=== PATIENT | female | born 1995 | race Caucasian/White ===

== ENCOUNTER 2016-12-29 11:50 | Emergency (ER) | payer BC ==
[2016-12-29] MEDS ORDERED: METOCLOPRAMIDE HCL 10 MG/2 ML VIAL IVP ONE (12:08)
[2016-12-29] MEDS ORDERED: KETOROLAC 30 MG/ML VIAL IVP ONE (12:08)
[2016-12-29] MEDS ORDERED: 0.9 % SODIUM CHLORIDE 1,000 ML BAG IV ONE (12:08)
[2016-12-29] MEDS ORDERED: DEXAMETHASONE 4 MG/ML 1ML VIAL IVP ONE (12:08)
[2016-12-29] MEDS ORDERED: DIPHENHYDRAMINE HCL IV 50 MG/ML VIAL IVP ONE (12:08)
--- NOTE | 2016-12-29 12:08 | Emergency Department Record ---
History of Present Illness - General Stated Complaint: MIGRAINE Time Seen by Provider: 12/29/16 11:51 Source: Patient Mode of Arrival: Ambulatory Limitations: No limitations - History of Present Illness Initial Comments: 21 yo female presents with a headache. She reports she has had migraines since the age of 15. Her migraines occur about once a week to every tow weeks. since the beginning of the summer she has had increase in frequency of her migraines. She often has a preceding aura. No speech changes, no weakness, facial expression changes, hearing changes, weakness or coordination changes. She does have sensitivity to light and noises. She was on preventative medications at one point in time but has not taken them for a few years. No trauma or fever. She is under stress.PCP Pily Lew MD Complaint: Headache, "Migraine" -: Month(s) (Increased migraine frequency since the begining of summer) Onset Description: Gradual Location: Frontal Severity: Severe Quality: Aching Consistency: Intermittent Improves With: Nothing Worsens With: Light, Noise Associated Symptoms: Nausea, Photophobia, Vomiting Treatments Prior to Arrival: Migraine medication - Related Data Home Medications Medication Instructions Recorded Confirmed Last Taken No Home Med [NO HOME MEDS] 12/29/16 12/29/16 Unknown Allergies Allergy/AdvReac Type Severity Reaction Status Date / Time cefixime [From Suprax] Allergy DIFFICULTY Unverified 09/08/16 18:50 BREATHING sulfamethoxazole Allergy DIFFICULTY Unverified 09/08/16 18:50 [From Bactrim] BREATHING trimethoprim [From Bactrim] Allergy DIFFICULTY Unverified 09/08/16 18:50 BREATHING Review of Systems Constitutional: Denies: Chills, Fever, Night sweats, Weakness Eyes: Reports: Photophobia. Denies: Eye discharge, Eye pain, Vision change ENT: Denies: Congestion, Throat pain Respiratory: Denies: Cough, Dyspnea, Hemoptysis, Stridor, Wheezes Cardiovascular: Denies: Chest pain, Palpitations, Syncope Endocrine: Denies: Fatigue, Polydipsia, Polyuria Gastrointestinal: Reports: Nausea, Vomiting. Denies: Abdominal pain, Diarrhea, Hematochezia Genitourinary: Denies: Dyspareunia, Dysuria, Urgency Musculoskeletal: Denies: Arthralgia, Back pain, Joint swelling, Myalgia, Neck pain Skin: Denies: Bruising, Change in color, Rash Neurological: Reports: Headache. Denies: Abnormal gait, Confusion, Numbness, Paresthesias, Seizure, Tingling, Tremors, Vertigo, Weakness Psychiatric: Denies: Anxiety Hematological/Lymphatic: Denies: Anemia, Blood Clots, Easy bleeding, Easy bruising, Swollen glands Physical Exam - General General Appearance: Alert, Oriented x3, Cooperative, No acute distress Limitations: No limitations - Head Head exam: Atraumatic, Normocephalic, Normal inspection - Eye Eye exam: Normal appearance, PERRL, EOMI. negative: Conjunctival injection, Nystagmus, Periorbital swelling, Scleral icterus Pupils: Normal accommodation. negative: Irregular, Unequal - ENT ENT exam: Normal exam, Mucous membranes moist Ear exam: Normal external inspection Nasal Exam: Normal inspection Mouth exam: Normal external inspection Throat exam: Normal inspection. negative: Tonsillar erythema, Tonsillomegaly, Tonsillar exudate, R peritonsillar mass, L peritonsillar mass - Neck Neck exam: Normal inspection, Full ROM. negative: Lymphadenopathy, Tenderness - Respiratory Respiratory exam: Normal lung sounds bilaterally. negative: Respiratory distress - Cardiovascular Cardiovascular Exam: Regular rate, Normal rhythm, Normal heart sounds - GI/Abdominal GI/Abdominal exam: Soft. negative: Tenderness - Rectal Rectal exam: Deferred - exam: Deferred - Extremities Extremities exam: Normal inspection, Full ROM. negative: Pedal edema - Back Back exam: Reports: Normal inspection, Full ROM. Denies: Muscle spasm, Rash noted, Tenderness - Neurological Neurological exam: Alert, CN II-XII intact, Normal gait, Oriented X3, Reflexes normal, Other (Normal finger to nose, normal Rhomber, Normal ELEAZAR, ). negative: Abnormal gait, Altered, Motor sensory deficit - Psychiatric Psychiatric exam: Normal affect, Normal mood. negative: Agitated, Anxious - Skin Skin exam: Dry, Intact, Normal color, Warm Course - Reevaluation(s) Reevaluation #1: The patient was seen on arrival with the nurse. 12/29/16 11:53 Records from [facility] requested 12/29/16 12:11 CBC and CMP were reviewed and are in the normal range. 12/29/16 13:13 UA and HCG are negative HCT is pending 12/29/16 14:20 HCT negative for acute process The patient has follow up with PCP at 4:30pm We discussed follow up and possible placing her on daily preventative for migraines BP much improved at DC Her pain is well controlled at DC 12/29/16 15:04 Medical Decision Making - Lab Data Result diagrams: 12/29/16 12:35 12/29/16 12:35 Disposition Disposition: Discharge Clinical Impression: Migraine Qualifiers: Migraine type: unspecified Status migrainosus presence: without status migrainosus Intractability: not intractable Qualified Code(s): G43.909 - Migraine, unspecified, not intractable, without status migrainosus Disposition: Home, Self-Care Condition: (1) Good Instructions: Migraine Headache (ED) Additional Instructions: Follow up at 4:30 with your family doctor as scheduled Review you rlabs and head CT scan You scan was normal except mild right maxillary sinus disease Forms: Patient Portal Access Time of Disposition: 15:05 Quality - Quality Measures Quality Measures: Headache - Headache: Neuroimaging Quality Measure: Measure #419: Overuse of Neuroimaging Neurological Exam: Patient had a normal neurological exam. [G9535] Headache: Use of Neuroimaging: CTA, CT, MRA or MRI Ordered w/Medical Reason [ G9536] Medical Reason for Exam: Change in Type of Headache - Blood Pressure Screening Does Patient Have Any of the Following: No Blood Pressure Classification: Pre-Hypertensive BP Reading Systolic Measurement: 130 Diastolic Measurement: 76 Screening for High Blood Pressure: < Pre-Hypertensive BP, F/U Documented > [ G8950] Pre-Hypertensive Follow-up Interventions: Referral to alternative/primary care provider.
[2016-12-29 12:45] LABS: HEMATOCRIT 35.7 % (35.0-47.0); HEMOGLOBIN 11.6 gm/dl (11.6-16.0); MEAN CELL VOLUME 85.4 fl (81-97); MEAN CORPUSCULAR HEMOGLOBIN 27.8 pg (27-33); MEAN CORPUSCULAR HGB CONC 32.5 g/dl (32-36); MEAN PLATELET VOLUME 8.5 fl (7.4-10.4); PLATELET COUNT 394 K/uL (130-400); RED BLOOD COUNT 4.18 M/uL (3.80-5.40); RED CELL DISTRIBUTION WIDTH 13.3 % (11.5-14.5)
[2016-12-29 12:56] LABS: PLATELET ESTIMATE NORMAL (NORMAL)
[2016-12-29 12:57] LABS: BLOOD UREA NITROGEN 30.8 mg/dL (12.6-42.6); CREATININE 0.5 mg/dL (0.5-0.9); EST GLOMERULAR FILTRATION RATE > 60 mL/min; GLUCOSE,RANDOM 96 mg/dL (74-109)
[2016-12-29] MEDS ORDERED: MAGNESIUM SULFATE 16 MEQ in 0.9 % SODIUM CHLORIDE 100ML 100 ML IV ONE (13:13)
[2016-12-29 13:37] LABS: URINE APPEARANCE CLEAR; URINE BILIRUBIN NEGATIVE (NEGATIVE); URINE BLOOD NEGATIVE (NEGATIVE); URINE COLOR YELLOW; URINE GLUCOSE (UA) NEGATIVE (NEGATIVE); URINE KETONE NEGATIVE (NEGATIVE); URINE LEUKOCYTE ESTERASE NEGATIVE (NEGATIVE); URINE NITRITE NEGATIVE (NEGATIVE); URINE PROTEIN NEGATIVE (NEGATIVE); URINE UROBILINOGEN 0.2 E.U./dL (0.20 - 1.00)
[2016-12-29 13:41] LABS: HCG,QUALITATIVE URINE NEGATIVE (NEGATIVE)
--- NOTE | 2016-12-30 07:25 | CT SCAN REPORT ---
EXAM: CT OF THE BRAIN WITHOUT CONTRAST HISTORY: INJURY. TECHNIQUE: Sequential axial images were obtained from the foramen magnum to the vertex without contrast administration. FINDINGS: The brain volume is normal. No large territorial infarct, hemorrhage , mass effect, or midline shift. No extraaxial fluid collection. There is right maxillary sinus disease. No depressed skull fracture. IMPRESSION: 1. NO ACUTE INTRACRANIAL ABNORMALITY IS APPRECIATED. 2. RIGHT MAXILLARY SINUS DISEASE. JOB NUMBER: [id number] MTDD
== END 2016-12-29 15:15 | disposition home or self-care (01) ==
LOC: ER 11:50
DX: G43.909 Migraine, unspecified, not intractable, without status migrainosus (principal); R11.2 Nausea with vomiting, unspecified; H53.149 Visual discomfort, unspecified
CPT/HCPCS: 99284 ×2; 96365; 96375; 96361; 80048; 81003; 81025; 85027; 70450; J1885; J1200; J2765; J7030

== ENCOUNTER 2018-02-24 10:46 | Emergency (ER) | payer BC ==
[2018-02-24] MEDS ORDERED: 0.9 % SODIUM CHLORIDE 1,000 ML BAG IV ONE (10:57)
--- NOTE | 2018-02-24 11:02 | Emergency Department Record ---
History of Present Illness - General Chief complaint: complication Stated complaint: STOMACH PAIN, 8 WEEKS PREG Time Seen by Provider: 02/24/18 10:56 Source: Patient - History of Present Illness Initial comments: The patient is [id number] 12-30-17, 8 weeks . She awakened at 3 a.m. this morning with a "severe cramp" which is waxing and waning between 7/10 to 0/10. She denies radiation to back, fevers, chills, dysuria, vaginal bleeding. She has nausea which she states is due to her . She has been seen in [place] "intake only" for her , but has not yet seen the OB physician. MD Complaint: Abdominal pain - Related Data Previous Rx's Medication Instructions Recorded Nitrofurantoin Monohyd/M-Cryst 100 mg PO BID #20 capsule 02/24/18 [Macrobid 100 mg Capsule] Allergies Allergy/AdvReac Type Severity Reaction Status Date / Time cefixime [From Suprax] Allergy DIFFICULTY Verified 02/24/18 11:01 BREATHING sulfamethoxazole Allergy DIFFICULTY Verified 02/24/18 11:01 [From Bactrim] BREATHING trimethoprim [From Bactrim] Allergy DIFFICULTY Verified 02/24/18 11:01 BREATHING Review of Systems Reviewed: No additional complaints except as noted below Constitutional: Reports: As per HPI. Denies: Chills, Fever, Malaise, Night sweats, Weakness, Weight change Eyes: Reports: As per HPI. Denies: Eye discharge, Eye pain, Photophobia, Vision change ENT: Reports: As per HPI. Denies: Congestion, Dental pain, Ear pain, Epistaxis , Hearing loss, Throat pain Respiratory: Reports: As per HPI. Denies: Cough, Dyspnea, Hemoptysis, Stridor, Wheezes Cardiovascular: Reports: As per HPI. Denies: Arrhythmia, Chest pain, Dyspnea on exertion, Edema, Murmurs, Orthopnea, Palpitations, Paroxysmal nocturnal dyspnea, Rheumatic Fever, Syncope Endocrine: Reports: As per HPI. Denies: Fatigue, Heat or cold intolerance, Polydipsia, Polyuria Gastrointestinal: Reports: As per HPI. Denies: Abdominal pain, Constipation, Diarrhea, Hematemesis, Hematochezia, Melena, Nausea, Vomiting Genitourinary: Reports: As per HPI. Denies: Abnormal menses, Discharge, Dyspareunia, Dysuria, Frequency, Hematuria, Incontinence, Retention, Urgency Musculoskeletal: Reports: As per HPI. Denies: Arthralgia, Back pain, Gout, Joint swelling, Myalgia, Neck pain Skin: Reports: As per HPI. Denies: Bruising, Change in color, Change in hair/ nails, Lesions, Pruritus, Rash Neurological: Reports: As per HPI. Denies: Abnormal gait, Confusion, Headache, Numbness, Paresthesias, Seizure, Tingling, Tremors, Vertigo, Weakness Psychiatric: Reports: As per HPI. Denies: Anxiety, Auditory hallucinations, Depression, Homicidal thoughts, Suicidal thoughts, Visual hallucinations Hematological/Lymphatic: Reports: As per HPI. Denies: Anemia, Blood Clots, Easy bleeding, Easy bruising, Swollen glands Past Medical History - SOCIAL HISTORY Smoking Status: Never smoker Drug Use: None - RESPIRATORY Hx Respiratory Disorders: No - CARDIOVASCULAR Hx Cardio Disorders: No - NEURO Hx Neuro Disorders: Yes Hx Headaches: Yes - GI Hx GI Disorders: No - Hx Genitourinary Disorders: No - ENDOCRINE Hx Endocrine Disorders: No - MUSCULOSKELETAL Hx Musculoskeletal Disorders: No - PSYCH Hx Psych Problems: No - HEMATOLOGY/ONCOLOGY Hx Hematology/Oncology Disorders: No Physical Exam - General General Appearance: Alert, Oriented x3, Cooperative, Mild distress - Head Head exam: Normal inspection - Eye Eye exam: Normal appearance, PERRL Pupils: Normal accommodation - ENT ENT exam: Normal exam, Mucous membranes moist, Normal external ear exam, Normal orophraynx, TM's normal bilaterally Ear exam: Normal external inspection. negative: External canal tenderness Nasal Exam: Normal inspection. negative: Discharge, Sinus tenderness Mouth exam: Normal external inspection, Tongue normal Teeth exam: Normal inspection. negative: Dental caries Throat exam: Normal inspection. negative: Tonsillar erythema, Tonsillar exudate - Neck Neck exam: Normal inspection, Full ROM. negative: Tenderness - Respiratory Respiratory exam: Normal lung sounds bilaterally. negative: Respiratory distress - Cardiovascular Cardiovascular Exam: Regular rate, Normal rhythm, Normal heart sounds - GI/Abdominal GI/Abdominal exam: Soft, Normal bowel sounds, Tenderness (mild discomfort on palpation of lower abdomen bilaterally). negative: Distended, Guarding, Rebound , Rigid - Rectal Rectal exam: Deferred - exam: Deferred - Extremities Extremities exam: Normal inspection, Full ROM, Normal capillary refill. negative: Calf tenderness, Pedal edema, Tenderness - Back Back exam: Reports: Normal inspection, Full ROM. Denies: CVA tenderness (R), CVA tenderness (L), Muscle spasm, Rash noted, Tenderness - Neurological Neurological exam: Alert, CN II-XII intact, Normal gait, Oriented X3, Reflexes normal. negative: Motor sensory deficit - Psychiatric Psychiatric exam: Normal affect, Normal mood - Skin Skin exam: Dry, Intact, Normal color, Warm Course - Reevaluation(s) Reevaluation #1: Awaiting ultrasound results. Patient remains nauseated but declines zofran. IV infusion of NS in progress. 02/24/18 13:31 Reevaluation #2: Results discussed with patient. She is feeling somewhat better after fluids. Results discussed. Importance of completing all her antibiotics emphasized. Patient agrees, understands and will follow with her OB. 02/24/18 14:09 02/24/18 14:14 Medical Decision Making - Management Options MDM Management: No Additional Work-up Planned - Data Complexity MDM Data: Labs Ordered and/or Reviewed (UA:10-15 epi; 3-5WBC, 3-6 RBC, 2+bact; sm LE.), X-Ray Ordered and/or Reviewed (US Pelvis: IUP 5 wk 1 day; FHT's 130' s. Per radiologist. ) - Lab Data Result diagrams: 02/24/18 11:20 02/24/18 11:20 Disposition Disposition: Discharge Clinical Impression: First trimester UTI (urinary tract infection) Qualifiers: Urinary tract infection type: acute cystitis Hematuria presence: with hematuria Qualified Code(s): N30.01 - Acute cystitis with hematuria Disposition: Home, Self-Care Condition: (1) Good Instructions: (ED), Urinary Tract Infection in (ED) Additional Instructions: Macrobid as directed until gone. Increase fluid intake. Follow up with OB as previously arranged. Prescriptions: Nitrofurantoin Monohyd/M-Cryst [Macrobid 100 mg Capsule] 100 mg PO BID #20 capsule Forms: Patient Portal Access Quality - Quality Measures Quality Measures: N/A - Blood Pressure Screening Does Patient Have Any of the Following: No Blood Pressure Classification: Pre-Hypertensive BP Reading Systolic Measurement: 141 Diastolic Measurement: 85 Screening for High Blood Pressure: < Pre-Hypertensive BP, F/U Documented > [ G8950] Pre-Hypertensive Follow-up Interventions: Follow-up with rescreen every year.
[2018-02-24 11:49] LABS: URINE APPEARANCE CLEAR; URINE BILIRUBIN NEGATIVE (NEGATIVE); URINE BLOOD NEGATIVE (NEGATIVE); URINE COLOR YELLOW; URINE GLUCOSE (UA) NEGATIVE (NEGATIVE); URINE KETONE NEGATIVE (NEGATIVE); URINE LEUKOCYTE ESTERASE SMALL (NEGATIVE); URINE NITRITE NEGATIVE (NEGATIVE); URINE PROTEIN NEGATIVE (NEGATIVE); URINE UROBILINOGEN 0.2 E.U./dL (0.20 - 1.00)
[2018-02-24 11:50] LABS: BASO % 0.2 % (0-6); EOS % 2.3 % (0-6); GRAN % 59.1 % (47-80); HEMATOCRIT 39.4 % (35.0-47.0); HEMOGLOBIN 12.6 gm/dl (11.6-16.0); LYMPH % 32.5 % (16-45); MEAN CELL VOLUME 85.3 fl (81-97); MEAN CORPUSCULAR HEMOGLOBIN 27.3 pg (27-33); MEAN PLATELET VOLUME 9.9 fl (7.4-10.4); MONO % 5.9 % (0-9); PLATELET COUNT 275 K/uL (130-400); RED BLOOD COUNT 4.62 M/uL (3.80-5.40); RED CELL DISTRIBUTION WIDTH 13.6 % (11.5-14.5); WHITE BLOOD COUNT W/O DIFF 8.7 K/uL (4.2-12.2)
[2018-02-24 12:01] LABS: BLOOD UREA NITROGEN 8 mg/dL (6-20); CREATININE 0.4 mg/dL (0.5-0.9); EST GLOMERULAR FILTRATION RATE > 60 mL/min; URINE BACTERIA 2+
[2018-02-24 12:02] LABS: TOTAL PROTEIN 7.4 g/dL (6.6-8.7)
[2018-02-24 12:04] LABS: GLUCOSE,RANDOM 91 mg/dL (74-109)
[2018-02-24 12:06] LABS: ALB/GLOB RATIO 1.2 (1.1-1.8); ALBUMIN 4.1 g/dL (4.0-5.0); ALKALINE PHOSPHATASE 64 U/L (35-104); ALT/SGPT 24 U/L (<33)
[2018-02-24 12:48] LABS: AST/SGOT 15 U/L (10.0-35.0)
--- NOTE | 2018-02-25 06:36 | ULTRASOUND REPORT ---
EXAM: OBSTETRICAL ULTRASOUND LESS THAN 13 WEEKS HISTORY: STOMACH PAIN. TECHNIQUE: Transvaginal and transabdominal sonographic evaluation of first trimester was performed with the addition of Doppler and spectral analysis. FINDINGS: There is a single live intrauterine with sonographic age of 5 weeks 1 day. heart tones are 130 b.p.m. The amniotic fluid volume is subjectively normal. The placenta is forming. The ovaries are normal in size. There is normal arterial and venous flow. IMPRESSION: SINGLE LIVE INTRAUTERINE WITH SONOGRAPHIC AGE OF 5 WEEKS 1 DAY. HEART TONES MEASURE 130 B.P.M. JOB NUMBER: [id number] MTDD
== END 2018-02-24 14:22 | disposition home or self-care (01) ==
LOC: ER 10:46
DX: O23.11 Infections of bladder in pregnancy, first trimester (principal); Z3A.08 8 weeks gestation of pregnancy
CPT/HCPCS: 76801; 76817; 80053; 81001; 84702; 85025; 86901; 99284; J7030